=== PATIENT | female | born 1980 | race Caucasian/White ===

== ENCOUNTER 2019-04-12 15:59 | Emergency (ER) | payer MEDICAID ==
[2019-04-12] MEDS: RIVAROXABAN 15 MG TABLET PO (17:46)
[2019-04-12] MEDS: ENOXAPARIN 80 MG/0.8 ML SYG SC (17:52)
== END 2019-04-12 18:44 | disposition home or self-care (01) ==
LOC: E/R 15:59
DX: I82.411 Acute embolism and thrombosis of right femoral vein (principal)
CPT/HCPCS: 93971; 96372; 99285-25